=== PATIENT | male | born 1950 | race Two or more races ===

== ENCOUNTER 2024-12-21 18:24 | Emergency (ER) | payer MEDICARE, MEDICAID, SELFPAY ==
[2024-12-21 18:26] VITALS: BMI 22.8
[2024-12-21 19:18] VITALS: BP 175/93; PULSE 65; RESP 20; TEMP 36.9; O2SAT 98
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
== END 2024-12-21 20:27 | disposition home or self-care (01) ==
PROVIDERS: Emergency Provider Emergency Medicine
DX: T23.001A Burn of unspecified degree of right hand, unspecified site, initial encounter (principal); T31.0 Burns involving less than 10% of body surface; X11.8XXA Contact with other hot tap-water, initial encounter
CPT/HCPCS: 99282